=== PATIENT | female | born 1970 | race Caucasian/White ===

== ENCOUNTER → 2022-09-08 | Outpatient (CLI) | payer BC ==
[~2022-09-08] MED LIST: CVS1CAP2 PO; ESTR3TA PO; GABA-283 PO; LEVO50TA5 PO; MELO15TA28 PO; MULTTAB61 PO; OMEG10002 PO; TRAZ-252 PO
== END ==
LOC: M LABSMTC 09:06
PROVIDERS: ATTEND Anesthesiology
DX: Z01.812 Encounter for preprocedural laboratory examination (principal); Z11.52 Encounter for screening for COVID-19

== ENCOUNTER 2022-09-13 08:05 | Day surgery (SDC) | payer BC ==
[~2022-09-13] VITALS: Ht 154.9 cm; Wt 82.1 kg
[~2022-09-13 08:05] MED LIST changes: +NS 1,000 ML IV ONE
[2022-09-13] MEDS ORDERED: LIDOCAINE 2% 100MG/5ML SDV (FOR ANES.) As Ordered ONE (10:00)
[2022-09-13] MEDS ORDERED: propofoL 200 MG/20 ML VIAL As Ordered ONE (10:00)
[2022-09-13 10:32] VITALS: BP 146/63
== END 2022-09-13 11:02 | disposition home or self-care (01) ==
LOC: M OPP 08:05
PROVIDERS: ATTEND Internal Medicine Gastroenterology
DX: Z12.11 Encounter for screening for malignant neoplasm of colon (principal); K57.30 Diverticulosis of large intestine without perforation or abscess without bleeding; K64.8 Other hemorrhoids; E06.3 Autoimmune thyroiditis; M12.9 Arthropathy, unspecified; M79.7 Fibromyalgia; Z88.0 Allergy status to penicillin; Z88.1 Allergy status to other antibiotic agents; Z88.5 Allergy status to narcotic agent; Z90.710 Acquired absence of both cervix and uterus